=== PATIENT | female | born 1945 | race Caucasian/White ===

== ENCOUNTER 2021-07-05 13:52 | Inpatient (IN) | payer MEDICARE, OTHER ==
[~2021-07-05] VITALS: Ht 157.5 cm; Wt 70.8 kg
[2021-07-05] MEDS ORDERED: VITAMIN D21250 MCG PO (16:34)
[2021-07-05] MEDS ORDERED: HYDROCODONE-AC1 EAC1 PO (16:35)
[2021-07-05] MEDS ORDERED: CARVEDILOL6.25 MG PO (16:36)
[2021-07-05] MEDS ORDERED: TIZANIDINE HCL2 MG PO (16:37)
[2021-07-05] MEDS ORDERED: HYGROTON TAB 2525 MG PO (16:38)
[2021-07-05] MEDS ORDERED: LISINOPRIL40 MG PO (16:39)
[2021-07-05] MEDS ORDERED: CLOPIDOGREL75 MG PO (16:40)
[2021-07-05] MEDS ORDERED: ATORVASTATIN CA40 MG PO (16:40)
[2021-07-05] MEDS ORDERED: FAMOTIDINE20 MG PO (16:41)
[2021-07-05] MEDS ORDERED: CARDURA 2MG TAB2 MG PO (16:41)
[2021-07-05] MEDS ORDERED: PROTONIX 40 MG40 M1 PO (16:42)
[2021-07-05] MEDS ORDERED: TRAZODONE HCL150 MG PO (16:44)
[2021-07-05] MEDS ORDERED: ASPIRIN EC81 MG PO (16:46)
[2021-07-05 17:00] LABS: HEMOGLOBIN 9.3 gm/dl (12.3-15.3); RED BLOOD COUNT 3.11 M/UL (4.00-5.10); WHITE BLOOD COUNT 7.4 K/UL (4.5-11.0)
[2021-07-06 03:33] LABS: HEMOGLOBIN 8.9 gm/dl (12.3-15.3); RED BLOOD COUNT 3.04 M/UL (4.00-5.10); WHITE BLOOD COUNT 6.5 K/UL (4.5-11.0)
[2021-07-07 02:48] LABS: HEMOGLOBIN 8.7 gm/dl (12.3-15.3); RED BLOOD COUNT 2.92 M/UL (4.00-5.10); WHITE BLOOD COUNT 6.3 K/UL (4.5-11.0)
[2021-07-07 09:10] LABS: CREATININE, URINE 39.9 mg/dL (Not Estab.)
[2021-07-08 06:39] LABS: HEMOGLOBIN 8.5 gm/dl (12.3-15.3); RED BLOOD COUNT 2.84 M/UL (4.00-5.10); WHITE BLOOD COUNT 7.4 K/UL (4.5-11.0)
[2021-07-08 13:11] LABS: ANTI-DSDNA ANTIBODIES 5 IU/mL (0-9); COMPLEMENT C3, SERUM 98 mg/dL (82-167); COMPLEMENT C4, SERUM 20 mg/dL (12-38)
[2021-07-08 15:11] LABS: A/G RATIO 1.3 (0.7-1.7); ALBUMIN 3.2 g/dL (2.9-4.4); ALPHA-1-GLOBULIN 0.2 g/dL (0.0-0.4); ALPHA-2-GLOBULIN 0.6 g/dL (0.4-1.0); BETA GLOBULIN 0.7 g/dL (0.7-1.3); GAMMA GLOBULIN 0.9 g/dL (0.4-1.8); GLOBULIN, TOTAL 2.5 g/dL (2.2-3.9); IMMUNOGLOBULIN A, QN, SERUM 162 mg/dL (64-422); IMMUNOGLOBULIN G, QN, SERUM 864 mg/dL (586-1602); IMMUNOGLOBULIN M, QN, SERUM 72 mg/dL (26-217); M-SPIKE Not Observed g/dL (Not Observed); PROTEIN, TOTAL, SERUM 5.7 g/dL (6.0-8.5)
[2021-07-09 03:21] LABS: HEMOGLOBIN 7.8 gm/dl (12.3-15.3); RED BLOOD COUNT 2.58 M/UL (4.00-5.10); WHITE BLOOD COUNT 7.1 K/UL (4.5-11.0)
[2021-07-09 13:13] LABS: ANTIMYELOPEROXIDASE (MPO) ABS <9.0 U/mL (0.0-9.0); ANTIPROTEINASE 3 (PR-3) ABS <3.5 U/mL (0.0-3.5); ATYPICAL PANCA <1:20 titer (Neg:<1:20); CYTOPLASMIC (C-ANCA) <1:20 titer (Neg:<1:20); PERINUCLEAR (P-ANCA) <1:20 titer (Neg:<1:20)
--- NOTE | 2021-07-09 16:09 | NUR ---
ATTEMPTED TO RESTART IV X 2 ATTEMPTS AND OTHER NURSE ATTEMPTED TO RESTART IV X2 ATTEMPS WITH NO SUCCESS. MD BOLANOS
[2021-07-10 02:56] LABS: HEMOGLOBIN 7.4 gm/dl (12.3-15.3); RED BLOOD COUNT 2.5 M/UL (4.00-5.10)
[2021-07-11 04:05] LABS: HEMOGLOBIN 7.4 gm/dl (12.3-15.3); RED BLOOD COUNT 2.43 M/UL (4.00-5.10); WHITE BLOOD COUNT 7.7 K/UL (4.5-11.0)
[2021-07-11] MEDS ORDERED: XANAX0.25 MG PO (09:29)
[2021-07-11] MEDS ORDERED: NITROGLYCERIN0.4 MG SL (09:29)
[2021-07-11] MEDS ORDERED: ISOSORBIDE MONO30 MG PO (09:29)
[2021-07-11] MEDS ORDERED: POLYETHYLENE GL17 GM PO (09:29)
[2021-07-11] MEDS ORDERED: STIMULANT LAXA1 EACH PO (09:29)
[2021-07-11] MEDS ORDERED: FERROUS GLUCON324 M1 PO (09:48)
== END 2021-07-11 13:34 | disposition home or self-care (01) | DRG 281 ==
LOC: PROG CARE 15:30
PROVIDERS: Internal Medicine Infectious Disease; Internal Medicine Nephrology; Physician Assistant; ADMIT Internal Medicine
PROC: B24BZZZ Ultrasonography of Heart with Aorta (ICD-10-PCS; principal; 2021-07-06)
DX: I16.0 Hypertensive urgency (principal); I21.4 Non-ST elevation (NSTEMI) myocardial infarction; N18.4 Chronic kidney disease, stage 4 (severe); I16.9 Hypertensive crisis, unspecified; K92.1 Melena; I12.9 Hypertensive chronic kidney disease with stage 1 through stage 4 chronic kidney disease, or unspecified chronic kidney disease; E11.22 Type 2 diabetes mellitus with diabetic chronic kidney disease; D63.1 Anemia in chronic kidney disease; R80.9 Proteinuria, unspecified; I08.1 Rheumatic disorders of both mitral and tricuspid valves; D50.9 Iron deficiency anemia, unspecified; I25.10 Atherosclerotic heart disease of native coronary artery without angina pectoris; I27.20 Pulmonary hypertension, unspecified; K21.9 Gastro-esophageal reflux disease without esophagitis; E78.5 Hyperlipidemia, unspecified; Z82.49 Family history of ischemic heart disease and other diseases of the circulatory system; Z83.3 Family history of diabetes mellitus; Z95.1 Presence of aortocoronary bypass graft; Z79.82 Long term (current) use of aspirin; Z79.02 Long term (current) use of antithrombotics/antiplatelets; Z98.890 Other specified postprocedural states; Z87.891 Personal history of nicotine dependence
CPT/HCPCS: ECHO; 36415; 71045; 78452; 80048; 80053; 80069; 81001; 82043; 82550; 82553; 82570; 82728; 82784; 83036; 83520; 83540; 83550; 83735; 83883; 83970; 84100; 84155; 84156; 84165; 84484; 85025; 86038; 86160; 86225; 86256; 86334; 93005; 93017; 93306; 93308; A9502; J0360; J1756; J2405; J2785; J7030; P9047; U0002

== ENCOUNTER 2021-07-18 13:37 | Inpatient (IN) | payer MEDICARE, OTHER ==
[~2021-07-18] VITALS: Ht 157.5 cm; Wt 70.8 kg
[~2021-07-18 13:37] MED LIST: ASPIRIN EC81 MG PO; ATORVASTATIN CA40 MG PO; CARDURA 2MG TAB2 MG PO; CARVEDILOL6.25 MG PO; CLOPIDOGREL75 MG PO; FAMOTIDINE20 MG PO; FERROUS GLUCON324 M1 PO; HYDROCODONE-AC1 EAC1 PO; HYGROTON TAB 2525 MG PO; ISOSORBIDE MONO30 MG PO; LISINOPRIL40 MG PO; NITROGLYCERIN0.4 MG SL; POLYETHYLENE GL17 GM PO; STIMULANT LAXA1 EACH PO; TRAZODONE HCL150 MG PO; XANAX0.25 MG PO
--- NOTE | 2021-07-18 14:56 | NUR ---
DR. LIAO ON FLOOR SEEING PATIENT. NOTIFIED OF BLOOD PRESSURE [phone]/[id number]. MD WILL PUT IN ORDERS.
[2021-07-18] MEDS ORDERED: VITAMIN D21250 MCG PO (16:34)
[2021-07-18] MEDS ORDERED: TIZANIDINE HCL2 MG PO (16:37)
[2021-07-18 16:39] LABS: HEMOGLOBIN 7.8 gm/dl (12.3-15.3); RED BLOOD COUNT 2.59 M/UL (4.00-5.10); WHITE BLOOD COUNT 6.9 K/UL (4.5-11.0)
[2021-07-18] MEDS ORDERED: PROTONIX 40 MG40 M1 PO (16:42)
[2021-07-19 04:24] LABS: HEMOGLOBIN 7.4 gm/dl (12.3-15.3); RED BLOOD COUNT 2.49 M/UL (4.00-5.10); WHITE BLOOD COUNT 7.3 K/UL (4.5-11.0)
--- NOTE | 2021-07-19 11:22 | NUR ---
1120: OXYGEN TURNED OFF FOR RA SPO2. ON OXYGEN AT 2 LPM SPO2 NOTED AT 97%. 1130: SPO2 NOTED AT 90% ON RA, WILL RECHECK IN 10 MINUTES. 1140:
[2021-07-19] MEDS ORDERED: CATAPRES 0.1MG0.1 MG PO (11:24)
[2021-07-19] MEDS ORDERED: HYDRALAZINE HCL50 MG PO (11:24)
[2021-07-19] MEDS ORDERED: ALDACTONE 25MG25 MG PO (11:24)
== END 2021-07-19 15:03 | disposition home or self-care (01) | DRG 281 ==
LOC: M/S 14:16
PROVIDERS: Internal Medicine; ADMIT Internal Medicine
DX: I16.0 Hypertensive urgency (principal); I21.4 Non-ST elevation (NSTEMI) myocardial infarction; I50.32 Chronic diastolic (congestive) heart failure; N18.4 Chronic kidney disease, stage 4 (severe); Z20.822 Contact with and (suspected) exposure to COVID-19; I13.0 Hypertensive heart and chronic kidney disease with heart failure and stage 1 through stage 4 chronic kidney disease, or unspecified chronic kidney disease; I25.10 Atherosclerotic heart disease of native coronary artery without angina pectoris; I71.4 Abdominal aortic aneurysm, without rupture; E11.22 Type 2 diabetes mellitus with diabetic chronic kidney disease; K21.9 Gastro-esophageal reflux disease without esophagitis; E78.5 Hyperlipidemia, unspecified; Z95.1 Presence of aortocoronary bypass graft; Z95.5 Presence of coronary angioplasty implant and graft; Z98.890 Other specified postprocedural states; Z82.49 Family history of ischemic heart disease and other diseases of the circulatory system; Z83.3 Family history of diabetes mellitus; Z95.828 Presence of other vascular implants and grafts
CPT/HCPCS: 36415; 71045; 80053; 82550; 82553; 82607; 82728; 82746; 83540; 83550; 83735; 83880; 84484; 85025; 93005; J1756; J1940